=== PATIENT | male | born 1980 | race Caucasian/White ===

== ENCOUNTER 2021-07-28 18:22 | Inpatient (IN) | payer MEDICAID ==
[~2021-07-28] VITALS: Ht 180.3 cm; Wt 113.4 kg
[2021-07-28 18:57] VITALS: BP 141/75
[2021-07-28 19:26] LABS: BASOPHILS # (AUTO) 0.1 K/uL (0.00-0.22); BASOPHILS % (AUTO) 0.4 % (0.0-2.0); EOSINOPHILS # (AUTO) 0.1 K/uL (0-0.4); EOSINOPHILS % (AUTO) 0.6 % (0.0-4.0); HEMATOCRIT 46.9 % (36-52); HEMOGLOBIN 16.9 g/dL (12.0-18.0); LYMPHOCYTES % (AUTO) 8.5 % (20.5-51.1); MEAN CORPUSCULAR HEMOGLOBIN 31 pg (27-31); MEAN CORPUSCULAR HGB CONC 36 g/dL (33-37); MEAN CORPUSCULAR VOLUME 84.9 fL (80-94); MONOCYTES # (AUTO) 1.1 K/uL (0.8-1.0); MONOCYTES % (AUTO) 4.8 % (1.7-9.3); NEUTROPHILS # (AUTO) 20.5 K/uL (1.8-7.7); NEUTROPHILS % (AUTO) 85.7 % (42.2-75.2); PLATELET COUNT (AUTO) 309 K/uL (140-450); RED BLOOD CELL COUNT(AUTO) 5.53 MIL/uL (4.20-6.10); RED CELL DISTRIBUTION WIDTH 14.7 % (11.6-13.7); WHITE BLOOD COUNT (AUTO) 23.9 K/uL (4.8-10.8)
[2021-07-28] MEDS ORDERED: KETOROLAC 30 MG/ML VIAL IM ONE (19:50)
[2021-07-28 20:04] LABS: ALBUMIN 3.7 g/dL (3.4-5.0); ANION GAP 20.8 (8-16); CARBON DIOXIDE 18.4 mmol/L (21-32); CREATININE 0.9 mg/dL (0.6-1.3); POTASSIUM 4.2 mmol/L (3.5-5.1); TOTAL BILIRUBIN 1.1 mg/dL (0.0-1.0)
[2021-07-28] MEDS ORDERED: NACL 0.9% 2,000 ML IV ONE (21:10)
[2021-07-28] MEDS ORDERED: PIPERACILLIN/TAZOBACTAM 3.375 GM in DEXTROSE 5% 50 ML IV ONE (21:15)
[2021-07-28] MEDS ORDERED: MORPHINE SULFATE 4 MG/ML SYR IVP ONE (21:15)
[2021-07-28] MEDS ORDERED: MORPHINE SULFATE 2 MG/ML SYR IVP PRN (21:30)
[2021-07-28] MEDS ORDERED: NACL 0.9% 1,000 ML IV ONE (21:30)
[2021-07-28] MEDS ORDERED: MORPHINE SULFATE 4 MG/ML SYR IVP PRN (21:30)
[2021-07-28] MEDS ORDERED: PIPERACILLIN/TAZOBACTAM 3.375 GM VIAL IV ONE (21:31)
[2021-07-28] MEDS ORDERED: METF-1139 PO (22:14)
[2021-07-28 22:19] LABS: CHOL/HDL RATIO 14.6 (1-4.5); HDL CHOLESTEROL 27 mg/dL (40-60); TRIGLYCERIDES 4557 mg/dL (30-150)
[2021-07-28 22:24] LABS: APPEARANCE,URINE CLEAR (CLEAR); BILIRUBIN,URINE NEGATIVE (NEGATIVE); BLOOD, URINE TRACE-L (NEGATIVE); COLOR,URINE YELLOW (YELLOW); LEUKOCYTE ESTERASE ,URINE NEGATIVE (NEGATIVE); NITRITE, URINE NEGATIVE (NEGATIVE); PH,URINE 5.5 (5.0-9.0); UGLUCOSE 3+ (NEGATIVE)
[2021-07-28 23:01] LABS: RBC,URINE 0-5 /HPF (0-5); WBC,URINE 0-5 /HPF (0-5)
[2021-07-28 23:18] VITALS: BP 122/80
[2021-07-29] MEDS: NACL 0.9% 1,000 ML IV SCH ×5 (01:54→21:40)
[2021-07-29 04:00] VITALS: BP 128/88
[2021-07-29 08:00] VITALS: BP 107/76
[2021-07-29 08:42] LABS: BASOPHILS # (AUTO) 0.2 K/uL (0.00-0.22); BASOPHILS % (AUTO) 1.1 % (0.0-2.0); EOSINOPHILS # (AUTO) 0.3 K/uL (0-0.4); EOSINOPHILS % (AUTO) 1.6 % (0.0-4.0); HEMATOCRIT 46.5 % (36-52); HEMOGLOBIN 16.1 g/dL (12.0-18.0); LYMPHOCYTES # (AUTO) 1.6 K/uL (2.0-11.5); LYMPHOCYTES % (AUTO) 9.3 % (20.5-51.1); MEAN CORPUSCULAR HEMOGLOBIN 30 pg (27-31); MEAN CORPUSCULAR HGB CONC 35 g/dL (33-37); MEAN CORPUSCULAR VOLUME 85.3 fL (80-94); MONOCYTES # (AUTO) 1.1 K/uL (0.8-1.0); NEUTROPHILS # (AUTO) 14.4 K/uL (1.8-7.7); PLATELET COUNT (AUTO) 302 K/uL (140-450); RED BLOOD CELL COUNT(AUTO) 5.45 MIL/uL (4.20-6.10); RED CELL DISTRIBUTION WIDTH 14.8 % (11.6-13.7); WHITE BLOOD COUNT (AUTO) 17.6 K/uL (4.8-10.8)
[2021-07-29 08:59] LABS: ANION GAP 12.9 (8-16); CARBON DIOXIDE 22.9 mmol/L (21-32); CREATININE 0.8 mg/dL (0.6-1.3); POTASSIUM 3.8 mmol/L (3.5-5.1)
[2021-07-29] MEDS ORDERED: NACL 0.9% 1,000 ML IV SCH (09:00)
[2021-07-29] MEDS ORDERED: POTASSIUM CHLORIDE 10 MEQ TABER PO PRN (10:50)
[2021-07-29] MEDS ORDERED: MAG SULF 2000 MG/WATER PREMIX 50 ML IV PRN (10:50)
[2021-07-29] MEDS ORDERED: DEXTROSE 50% 50 ML SYR IVP PRN (10:50)
[2021-07-29] MEDS ORDERED: ONDANSETRON 4 MG/2 ML VIAL IM/IVP PRN (10:55)
[2021-07-29] MEDS ORDERED: ZOLPIDEM 5 MG TAB PO PRN (10:55)
[2021-07-29] MEDS ORDERED: DOCUSATE SODIUM 100 MG GELCAP PO PRN (10:55)
[2021-07-29] MEDS ORDERED: LORazepam 2 MG/ML VIAL IM/IVP PRN (10:55)
[2021-07-29] MEDS ORDERED: ACETAMINOPHEN 325 MG TAB PO PRN (10:55)
[2021-07-29] MEDS ORDERED: LORazepam 1 MG TAB PO PRN (11:05)
[2021-07-29 11:29] LABS: PROTHROMBIN TIME 9.7 secs (10.8-13.4)
[2021-07-29] MEDS: BLOOD GLUCOSE MONITORING 1 DEV DEV FS SCH ×3 (11:30→21:27)
[2021-07-29 11:32] LABS: THYROID STIMULATING HORMONE 0.39 uIU/mL (0.34-3.74)
[2021-07-29] MEDS: INSULIN LISPRO SLIDING SCALE 100 UNITS/ML VIAL SUBQ PRN ×3 (12:42→21:29)
[2021-07-29] MEDS ORDERED: PIPERACILLIN/TAZOBACTAM 3.375 GM in DEXTROSE 5% 50 ML IV SCH (13:00)
[2021-07-29 14:45] LABS: BARBITURATE, URINE NEGATIVE ng/ml (NEG <=200); BENZODIAZEPINE, URINE NEGATIVE ng/mL (NEG <=200); CANNABINOID, URINE NEGATIVE ng/mL (NEG <=50); COCAINE, URINE NEGATIVE ng/mL (NEG <=300); OPIATE, URINE NEGATIVE ng/mL (NEG <=2000); PHENCYCLIDINE SCREEN,URINE NEGATIVE ng/mL (NEG <=25)
[2021-07-29 16:00] VITALS: BP 118/80
[2021-07-29] MEDS: metFORMIN 500 MG TAB PO SCH (17:08)
[2021-07-29 20:00] VITALS: BP 126/85
[2021-07-30] MEDS: NACL 0.9% 1,000 ML IV SCH ×5 (03:11→22:58)
[2021-07-30 04:00] VITALS: BP 112/81
[2021-07-30 05:34] LABS: BASOPHILS % (AUTO) 0.2 % (0.0-2.0); EOSINOPHILS # (AUTO) 0.3 K/uL (0-0.4); HEMATOCRIT 42.7 % (36-52); HEMOGLOBIN 14.4 g/dL (12.0-18.0); LYMPHOCYTES # (AUTO) 1.4 K/uL (2.0-11.5); LYMPHOCYTES % (AUTO) 8.6 % (20.5-51.1); MEAN CORPUSCULAR HEMOGLOBIN 29 pg (27-31); MEAN CORPUSCULAR HGB CONC 34 g/dL (33-37); MEAN CORPUSCULAR VOLUME 86.6 fL (80-94); MONOCYTES # (AUTO) 1.4 K/uL (0.8-1.0); MONOCYTES % (AUTO) 8.7 % (1.7-9.3); NEUTROPHILS # (AUTO) 13.3 K/uL (1.8-7.7); NEUTROPHILS % (AUTO) 80.5 % (42.2-75.2); PLATELET COUNT (AUTO) 221 K/uL (140-450); RED BLOOD CELL COUNT(AUTO) 4.93 MIL/uL (4.20-6.10); RED CELL DISTRIBUTION WIDTH 14.7 % (11.6-13.7); WHITE BLOOD COUNT (AUTO) 16.5 K/uL (4.8-10.8)
[2021-07-30 06:17] LABS: ANION GAP 12.2 (8-16); CARBON DIOXIDE 22.4 mmol/L (21-32); CREATININE 0.7 mg/dL (0.6-1.3); POTASSIUM 3.6 mmol/L (3.5-5.1)
[2021-07-30] MEDS: BLOOD GLUCOSE MONITORING 1 DEV DEV FS SCH ×4 (06:32→21:03)
[2021-07-30 06:33] LABS: MAGNESIUM 1.8 mg/dL (1.8-2.4); PHOSPHORUS 1.9 mg/dL (2.5-4.9)
[2021-07-30] MEDS: INSULIN LISPRO SLIDING SCALE 100 UNITS/ML VIAL SUBQ PRN ×4 (06:33→21:07)
[2021-07-30 08:00] VITALS: BP 105/71
[2021-07-30 08:07] LABS: T4 (THYROXINE) 6.3 ug/dL (4.5-12.0)
[2021-07-30] MEDS: metFORMIN 500 MG TAB PO SCH ×2 (08:14→17:09)
[2021-07-30] MEDS ORDERED: NON-FORMULARY ITEM (Metformin HCl* (Glucophage Xr*) 500 MG) PO SCH (09:00)
[2021-07-30 16:00] VITALS: BP 116/72
[2021-07-31 04:00] VITALS: BP 112/68
[2021-07-31] MEDS: NACL 0.9% 1,000 ML IV SCH ×3 (05:13→12:58)
[2021-07-31 06:00] LABS: MAGNESIUM 1.8 mg/dL (1.8-2.4); PHOSPHORUS 1.8 mg/dL (2.5-4.9)
[2021-07-31 06:17] LABS: ANION GAP 11.1 (8-16); CARBON DIOXIDE 22.4 mmol/L (21-32); CREATININE 0.6 mg/dL (0.6-1.3); POTASSIUM 3.5 mmol/L (3.5-5.1)
[2021-07-31 06:28] LABS: BASOPHILS % (AUTO) 0.2 % (0.0-2.0); EOSINOPHILS # (AUTO) 0.2 K/uL (0-0.4); EOSINOPHILS % (AUTO) 1.7 % (0.0-4.0); HEMATOCRIT 38.1 % (36-52); HEMOGLOBIN 12.8 g/dL (12.0-18.0); LYMPHOCYTES # (AUTO) 1.3 K/uL (2.0-11.5); LYMPHOCYTES % (AUTO) 9.1 % (20.5-51.1); MEAN CORPUSCULAR HEMOGLOBIN 29 pg (27-31); MEAN CORPUSCULAR HGB CONC 34 g/dL (33-37); MEAN CORPUSCULAR VOLUME 86.2 fL (80-94); MONOCYTES % (AUTO) 7.3 % (1.7-9.3); NEUTROPHILS # (AUTO) 11.8 K/uL (1.8-7.7); NEUTROPHILS % (AUTO) 81.7 % (42.2-75.2); PLATELET COUNT (AUTO) 212 K/uL (140-450); RED BLOOD CELL COUNT(AUTO) 4.42 MIL/uL (4.20-6.10); RED CELL DISTRIBUTION WIDTH 14.8 % (11.6-13.7); WHITE BLOOD COUNT (AUTO) 14.4 K/uL (4.8-10.8)
[2021-07-31] MEDS: BLOOD GLUCOSE MONITORING 1 DEV DEV FS SCH ×2 (06:42→11:26)
[2021-07-31] MEDS: INSULIN LISPRO SLIDING SCALE 100 UNITS/ML VIAL SUBQ PRN ×2 (06:45→11:27)
[2021-07-31 08:00] VITALS: BP 107/66
[2021-07-31] MEDS: metFORMIN 500 MG TAB PO SCH (08:52)
[2021-07-31 15:01] VITALS: BP 107/66
== END 2021-07-31 15:35 | disposition home or self-care (01) | DRG 720 ==
LOC: MED 18:22 → MMU 21:42 → MTU 21:59
DX: A41.9 Sepsis, unspecified organism (principal); K85.90 Acute pancreatitis without necrosis or infection, unspecified; K76.0 Fatty (change of) liver, not elsewhere classified; E83.39 Other disorders of phosphorus metabolism; E87.1 Hypo-osmolality and hyponatremia; E11.9 Type 2 diabetes mellitus without complications; E78.5 Hyperlipidemia, unspecified; E66.9 Obesity, unspecified; R74.01 Elevation of levels of liver transaminase levels; Z20.822 Contact with and (suspected) exposure to COVID-19; E86.0 Dehydration; F17.200 Nicotine dependence, unspecified, uncomplicated; Z68.34 Body mass index [BMI] 34.0-34.9, adult
CPT/HCPCS: 36415; 76700; 80048; 80053; 80305; 81001; 82150; 82948; 83036; 83605; 83615; 83690; 83735; 83880; 84100; 84134; 84436; 84443; 84478; 85025; 85610; 85730; 87040; 87081; 96361; 96365; 96372; 99285; J1644; J1815; J1885; J2270; J2543; J7060; Q0092